=== PATIENT | female | born 1960 | race African-American/Black ===

== ENCOUNTER 2016-07-26 16:18 | Emergency (ER) | payer BC, OTHER ==
[2016-07-26 16:31] VITALS: BP 166/83; PULSE 62; TEMP 98; BMI 22.6
--- NOTE | 2016-07-26 17:03 | PDOC ---
History of Present Illness - General Chief Complaint: Injury Stated Complaint: FALL/HEAD INJURY Time Seen by Provider: 07/26/16 16:38 History Source: Patient Exam Limitations: No Limitations - History of Present Illness Initial Comments: CHIEF COMPLAINT: 56 y/o afebrile female with PMH IDDM, hypothryoidism c/o fall with LOC at work. HISTORY OF PRESENT ILLNESS: The patient states she tripped and fell at work and her co-worker told her she hit her head and had lost consciousness for "a few minutes". The patient states she did not feel dizzy or weak prior to fall. She does not remember if she lost consciousness. She states she has a slight pain in the left side of her head and her left leg. She states when she woke up she was slightly dizzy. She denies n/v/d, CP, SOB. She just checked her sugar and it's 60 - she is now eating in the ER. REVIEW OF SYSTEMS: GENERAL/CONSTITUTIONAL: No fever/chills. No weakness. No weight change. HEAD, EYES, EARS, NOSE AND THROAT: No change in vision. No ear pain or discharge. No sore throat. CARDIOVASCULAR: No chest pain or shortness of breath. No palpitations. RESPIRATORY: No cough, wheezing, or hemoptysis. GASTROINTESTINAL: No abd pain, nausea, vomiting, diarrhea. GENITOURINARY: No dysuria, frequency, or change in urination. MUSCULOSKELETAL: No joint or muscle swelling or pain. No neck or back pain. SKIN: No rash or easy bruising. NEUROLOGIC: +head trauma with LOC and then dizziness. PHYSICAL EXAM: GENERAL: The patient is awake, alert, and fully oriented, in no acute distress. She is well appearing and ambulatory. HEAD: Normal with no signs of trauma. No hematomas. ENT: Pupils equal, round and reactive to light, extraocular movements intact, sclera anicteric, conjunctiva clear. Neck supple. No midline cervical spine TTP. No hemotympanum b/l. LUNGS: Clear to auscultation bilaterally. Normal excursion. No respiratory distress or use of accessory muscles. CV: RRR, S1/S2, no MRG. Cap refill < 2 sec. ABDOMEN: Soft, non-distended, non-tender even to deep palpation, no hepatomegaly or splenomegaly, no masses. EXTREMITIES: Normal range of motion, no edema. NEUROLOGICAL: Normal speech, normal gait. CN II-XII grossly intact. PSYCH: Normal mood, normal affect. SKIN: Warm, dry, normal turgor, no rashes or lesions noted. Past History - Past Medical History Allergies/Adverse Reactions: Allergies Allergy/AdvReac Type Severity Reaction Status Date / Time No Known Drug Allergies Allergy Verified 03/19/16 12:36 Home Medications: Ambulatory Orders Aspirin Coated [Ecotrin -] 81 mg PO DAILY 03/19/16 Insulin Pump/Infus. Set/Meter [Accu-Chek Combo System] 1 each MC DAILY 03/19/16 Levothyroxine [Synthroid -] 112 mcg PO DAILY 03/19/16 Diabetes: Yes (IDDM-PUMP) Thyroid Disease: Yes (HYPOTHYROIDISM) - Psycho/Social/Smoking Cessation Hx Anxiety: No Suicidal Ideation: No Smoking History: Never smoked Have you smoked in the past 12 months: No Information on smoking cessation initiated: No Hx Alcohol Use: No Drug/Substance Use Hx: No Substance Use Type: Alcohol Hx Substance Use Treatment: No *Physical Exam - Vital Signs Last Vital Signs Temp Pulse Resp BP Pulse Ox 98.0 F 62 18 166/83 100 07/26/16 16:28 07/26/16 16:28 07/26/16 16:28 07/26/16 16:28 07/26/16 16:28 Medical Decision Making - Medical Decision Making A/P: 56 y/o female with witnessed fall with head trauma and LOC. Plan is as follows: 1. Head CT Head CT IMPRESSION: No interval change or acute pathology identified. The patient was given her results and head trauma protocol instructions. She does feel better since she's eaten. Pt instructed to return to the ER with any worsening or concerning symptoms. The patient verbalizes understanding of all instructions, has no further questions and is awaiting discharge. *DC/Admit/Observation/Transfer Diagnosis at time of Disposition: Fall from slipping Qualifiers: Encounter type: initial encounter Qualified Code(s): W01.0XXA - Fall on same level from slipping, tripping and stumbling without subsequent striking against object, initial encounter Head injury Qualifiers: Encounter type: initial encounter Qualified Code(s): S09.90XA - Unspecified injury of head, initial encounter - Discharge Dispostion Disposition: HOME Condition at time of disposition: Improved - Referrals Referrals: Neshiwat,Morris, MD [Primary Care Provider] - - Patient Instructions Printed Discharge Instructions: DI for Closed Head Injury Additional Instructions: Discharge Instructions: -Follow up with your doctor next week -Return to the ER with any worsening or concerning symptoms
[2016-07-26] MEDS ORDERED: ACETAMINOPHEN 325 MG TABLET (FP) ONE (18:32)
[2016-07-26] MEDS ORDERED: ACETAMINOPHEN 325 MG TABLET (FP) PO ONE (18:33)
== END 2016-07-26 18:36 | disposition home or self-care (01) ==
LOC: JERFT 16:18
DX: S06.899A Other specified intracranial injury with loss of consciousness of unspecified duration, initial encounter (principal); W01.198A Fall on same level from slipping, tripping and stumbling with subsequent striking against other object, initial encounter; Y93.89 Activity, other specified; Y92.118 Other place in children's home and orphanage as the place of occurrence of the external cause; Y99.0 Civilian activity done for income or pay; E11.9 Type 2 diabetes mellitus without complications; Z79.4 Long term (current) use of insulin; Z96.41 Presence of insulin pump (external) (internal); E03.9 Hypothyroidism, unspecified
CPT/HCPCS: 70450-TC; 99281-25

== ENCOUNTER 2018-08-11 09:48 | Day surgery (SDC) | payer BC ==
[2018-08-10 13:38] VITALS: BMI 24.1
--- NOTE | 2018-08-11 13:01 | HP ---
[facility] - Chief Complaint Chief Complaint: Back mass History of Present Illness: Patinet with back mass- enlarging in size. Prior history of discharge. + Discomfort History Source: Patient Limitations to Obtaining History: No Limitations - Past Medical History Allergies/Adverse Reactions: Allergies Allergy/AdvReac Type Severity Reaction Status Date / Time No Known Drug Allergies Allergy Verified 08/10/18 13:38 Endocrine: Yes: Diabetes Mellitus, Hypothyroidism - Current Medications Current Medications: Home Medications Medication Instructions Recorded Aspirin Coated [Ecotrin -] 81 mg PO ASDIR 03/19/16 Insulin Pump/Infus. Set/Meter 1 each MC DAILY 03/19/16 [Accu-Chek Combo System] Levothyroxine [Synthroid -] 112 mcg PO DAILY 03/19/16 Oxycodone HCl/Acetaminophen 1 - 2 tab PO Q6H #28 tab MDD 4 08/11/18 [Percocet 5-325 mg Tablet] Satellite Physical Exam - Physical Examination Vital Signs: Vital Signs Period Temp Pulse Resp BP Sys/Gonzalez Pulse Ox Last 24 Hr 98.3 F-98.3 F 62-62 18-18 118-118/63-63 98 General Appearance: Well Nourished, Other (2cm x 2cm upper back mass No discharge No erythema) Lung: Clear to auscultation Heart: Regular rate & rhythm Abdomen: Soft, No tenderness Neurological: Alert, Oriented Satellite Impression/Plan - Impression/Plan Impression: Back mass Operative Procedure: Excision of back mass Date to be Performed: 08/11/18
[2018-08-11] MEDS ORDERED: DEXAMETHASONE SOD PHOSPHATE 4 MG/1 ML VIAL ONE (13:28)
[2018-08-11] MEDS ORDERED: SODIUM CHLORIDE 0.9% P/F 10 ML VIAL IJ ONE (13:28)
[2018-08-11] MEDS ORDERED: ceFAZolin SODIUM 1 GM VIAL ONE (13:28)
[2018-08-11] MEDS ORDERED: LIDOCAINE HCL/PF 2% SDV 5ML VIAL ONE (13:28)
[2018-08-11] MEDS ORDERED: PROPOFOL 20 ML ONE (13:29)
[2018-08-11] MEDS ORDERED: MIDAZOLAM HCL 2 MG/2 ML SINGLE DOSE VIAL ONE (13:29)
[2018-08-11] MEDS ORDERED: ceFAZolin SODIUM 1 GM VIAL IVPB ONE (13:45)
[2018-08-11] MEDS ORDERED: LIDOCAINE 1%/EPI 1:100000 (50 ML MULTI DOSE VIAL) INF ONE (13:48)
[2018-08-11] MEDS ORDERED: LIDOCAINE 1%-EPI 1:100,000 30 ML MDV IJ ONE (13:49)
[2018-08-11] MEDS ORDERED: ONDANSETRON 4 MG/2 ML VIAL IVPUSH PRN (14:01)
[2018-08-11] MEDS ORDERED: POVIDONE-IODINE OINTMENT 10% - 28.4 GM TUBE ONE (14:13)
[2018-08-11] MEDS ORDERED: LACTATED RINGERS SOLUTION 1,000 ML IV SCH (14:15)
--- NOTE | 2018-08-11 14:25 | OP ---
Operative Note - Note: Operative Date: 08/11/18 Pre-Operative Diagnosis: Back mass Operation: Excision of back mass Findings: back mass 2cm x 2cm x 2cm in size Surgeon: Renny Shaver Anesthesia: Local, MAC Specimens Removed: Back mass Estimated Blood Loss (mls): 5 Operative Report Dictated: Yes
--- NOTE | 2018-08-11 15:40 | OP ---
DATE OF OPERATION: 08/11/2018 SURGEON: Mady Shaver MD PREOPERATIVE DIAGNOSIS: Back mass. POSTOPERATIVE DIAGNOSIS: Back mass. PROCEDURE: Excision of back mass, approximately 2 cm x 2 cm x 2 cm in size. SPECIMEN: Back mass. ANESTHESIA: MAC/local lidocaine with epinephrine. ESTIMATED BLOOD LOSS: Minimal. DRAINS: None. REASON FOR PROCEDURE: This is a 58-year-old female who presents for a mass on her back. She states that it has been enlarging and had times in the past where it was tender, had discomfort, and had episodes of discharge. Because of this, she was considered for excision of her back mass. The risks and benefits of the procedure were explained including bleeding, infection, recurrence of the mass, wound dehiscence, injury to surrounding structures including nerve injury, muscle injury, vessel injury, ME, DVT, PE, as some of the complications. She understood and signed the informed consent. DESCRIPTION OF PROCEDURE: Patient was brought into the OR and placed prone on the operating room table. She underwent MAC by Anesthesia. The area was prepped and draped in usual sterile fashion. Timeout was performed. Lidocaine with epinephrine was injected after the area was circumferentially marked for excisional purposes. Using a 15-blade scalpel, incision was made around the area of the mass and dissected down to below the level of the mass. The entirety of the mass was removed and sent off field as specimen. The area was copiously irrigated, and hemostasis was obtained with electrocautery. Vircyl 3-0 was used to close the deep subcutaneous tissue and, because of the location, 2-0 silk was used in a horizontal mattress fashion to close the skin. Betadine ointment was placed, and a dressing placed. Patient tolerated the procedure well, transferred to the recovery room in stable condition. MADY SHAVER M.D. MELANIE/[id number]
[2018-08-11 16:29] VITALS: BP 110/59; PULSE 61; TEMP 98.1
--- NOTE | 2018-08-14 10:13 | PATH ---
Surgical Pathology Report Patient Name: KARISSA HOOKS [facility]. Rec. #: [id number] /Age/Gender: 1960 (Age: 58) / F Account: [id number] Location: [facility] SURGICAL Taken: 08/11/2018 Received: 08/12/2018 Reported: 08/14/2018 Physicians: Renny Shaver M.D. Specimen(s) Received BACK MASS Clinical History Back mass Final Diagnosis BACK MASS, EXCISION: EPIDERMAL INCLUSION CYST. Electronically Signed Yodit Boone M.D. Gross Description Received in formalin labeled " back mass" is a 1.8 x 0.7 cm brown, elliptical portion of skin excised to a depth of 0.8 cm. The epidermal surface is unremarkable. Sectioning reveals an intact brown cystic structure. Staff Therapist sections are submitted in one cassette. DL/08/12/2018 saudi08/12/2018
== END 2018-08-11 16:35 | disposition home or self-care (01) ==
LOC: JASU-SURG 09:48
PROVIDERS: ATTEND Surgery
PROC: 0HB6XZZ Excision of Back Skin, External Approach (ICD-10-PCS; principal; 2018-08-11 12:30)
DX: L72.0 Epidermal cyst (principal)
CPT/HCPCS: 82962; 88304-TC

== ENCOUNTER → 2019-08-05 | Day surgery (SDC) | payer BC ==
--- NOTE | 2019-08-06 13:32 | PATH ---
Surgical Pathology Report Patient Name: KARISSA HOOKS [facility]. Rec. #: [id number] /Age/Gender: 1960 (Age: 59) / F Account: [id number] Location: [facility] Taken: 08/05/2019 Received: 08/05/2019 Reported: 08/06/2019 Physicians: Adia Tovar MD Specimen(s) Received A: RIGHT BREAST SPECIMEN - WITH CALCIFICATIONS B: RIGHT BREAST SPECIMEN - WITHOUT CALCIFICATIONS Clinical History Nonpalpable lesion Mammographic findings: Microcalcification, suspicious Final Diagnosis A. BREAST, RIGHT, WITH CALCIFICATIONS, STEREOTACTIC CORE BIOPSY: BENIGN BREAST PARENCHYMA WITH STROMAL FIBROSIS, MICROCYSTS, CYSTIC APOCRINE METAPLASIA, AND ASSOCIATED MICROCALCIFICATIONS. B. BREAST, RIGHT, WITHOUT CALCIFICATIONS, STEREOTACTIC CORE BIOPSY: BENIGN BREAST PARENCHYMA WITH STROMAL FIBROSIS AND FEW MICROCYSTS. Electronically Signed Yodit Boone M.D. Gross Description A. Received in formalin labeled "right breast with calcifications" are 6 heard-yellow, cylindrical portions of fibroadipose tissue ranging from 0.3-1.7 cm in length and averaging 0.3 cm in diameter. The specimens are submitted in toto in one cassette. B. Received in formalin labeled "right breast without calcifications," are 6 heard-yellow, cylindrical portions of fibroadipose tissue ranging from 0.5-2.0 cm in length and averaging 0.3 cm in diameter. The specimens are submitted in toto in one cassette. Time to formalin fixation: 5 minutes Total formalin fixation time: Approximately 8 hours. 08/05/2019 saudi08/05/2019
== END | disposition home or self-care (01) ==
LOC: FMAMMOTONE 08:11
PROVIDERS: ATTEND Obstetrics & Gynecology
PROC: 0HBT3ZX Excision of Right Breast, Percutaneous Approach, Diagnostic (ICD-10-PCS; principal; 2019-08-05)
DX: N60.11 Diffuse cystic mastopathy of right breast (principal); N60.31 Fibrosclerosis of right breast; N64.89 Other specified disorders of breast; R92.8 Other abnormal and inconclusive findings on diagnostic imaging of breast
CPT/HCPCS: 19081; 76098-TC-FY; 87899; 88305-TC; A4648

== ENCOUNTER 2021-09-08 06:47 | Emergency (ER) | payer BC ==
[2021-09-08 07:24] VITALS: BMI 23.3
[2021-09-08] MEDS ORDERED: ACETAMINOPHEN 1000 MG/100 ML BAG IVPB ONE (07:41)
[2021-09-08 08:08] LABS: BASO % 0.4 % (0-2.0); EOS % 0.3 % (0-4.5); HEMATOCRIT 35.8 % (32.4-45.2); LYMPH % 10.6 % (8-40); MCH 30.1 pg (25.7-33.7); MCHC 33.5 g/dl (32.0-36.0); MEAN PLT VOLUME 8.9 fl (7.5-11.1); MONO % 8.2 % (3.8-10.2); NEUT % 80.5 % (42.8-82.8); PLATELET COUNT 235 10^3/uL (134-434); RBC 3.98 M/mm3 (3.60-5.2); RDW 13.5 % (11.6-15.6); WHITE BLOOD COUNT 7.1 K/mm3 (4.0-10.0)
[2021-09-08] MEDS ORDERED: ACETAMINOPHEN INJECTION 100 ML IVPB ONE (08:11)
[2021-09-08 08:24] LABS: ALBUMIN 3.2 g/dl (3.4-5.0); CALCIUM 8.8 mg/dL (8.5-10.1)
[2021-09-08 08:27] LABS: CREATININE 0.9 mg/dL (0.55-1.3)
[2021-09-08 08:28] LABS: BILIRUBIN,TOTAL 0.4 mg/dL (0.2-1)
[2021-09-08 08:30] LABS: TOT PROT 7.9 g/dl (6.4-8.2)
[2021-09-08 09:52] VITALS: TEMP 98.7
[2021-09-08 10:07] VITALS: BP 122/67; PULSE 58
[2021-09-09 13:07] LABS: SARS-CoV-2 NAA Not Detected (Not Detected)
== END 2021-09-08 10:07 | disposition home or self-care (01) ==
LOC: JER 06:47
PROC: 3E033GC Introduction of Other Therapeutic Substance into Peripheral Vein, Percutaneous Approach (ICD-10-PCS; principal; 2021-09-08)
DX: B34.9 Viral infection, unspecified (principal); R07.0 Pain in throat; R50.9 Fever, unspecified
CPT/HCPCS: 36415; 71045-TC-FY; 80053; 84439; 84443; 85025; 87070; 93005; 93010; 99285-25; C9803; U0003; U0005

== ENCOUNTER 2023-05-28 03:31 | Day surgery (SDC) | payer BC ==
[2023-05-27 14:20] VITALS: BMI 22.6
[~2023-05-28 03:31] MED LIST: ACETAMINOPHEN 325 MG TABLET (FP) PO PRN; CYCLOPENTOLATE HCL 1% OPHTH SOLN 2 ML BOTTLE OP SCH; KETOROLAC TROMETHAMINE 0.5% EYE DROP 1 DROP DROPS OP SCH; OFLOXACIN 0.3% OPHTHALMIC SOLUTION 5 ML BOTTLE OP SCH; PHENYLEPHRINE 2.5% OPHTH SOLN 15 ML BOTTLE OP SCH; TROPICAMIDE 1% OPHTH SOLN 15 ML BOTTLE OP SCH
[2023-05-28] MEDS ORDERED: CYCLOPENTOLATE HCL 1% OPHTH SOLN 2 ML BOTTLE ONE (06:31)
[2023-05-28] MEDS ORDERED: KETOROLAC TROMETHAMINE 0.5% EYE DROP 1 DROP DROPS ONE (06:31)
[2023-05-28] MEDS ORDERED: TROPICAMIDE 1% OPHTH SOLN 15 ML BOTTLE ONE (06:31)
[2023-05-28] MEDS ORDERED: PHENYLEPHRINE 2.5% OPTHALMIC DROP 2ML BOTTLE ONE (06:31)
[2023-05-28] MEDS ORDERED: OFLOXACIN 0.3% OPHTHALMIC SOLUTION 5 ML BOTTLE ONE (06:32)
[2023-05-28] MEDS ORDERED: PHENYLEPHRINE 2.5% OPHTH SOLN 15 ML BOTTLE OS ONE ×3 (06:55→07:05)
[2023-05-28] MEDS ORDERED: TROPICAMIDE 1% OPHTH SOLN 15 ML BOTTLE OS ONE ×3 (06:55→07:05)
[2023-05-28] MEDS ORDERED: KETOROLAC TROMETHAMINE 0.5% EYE DROP 1 DROP DROPS OS ONE ×3 (06:55→07:05)
[2023-05-28] MEDS ORDERED: CYCLOPENTOLATE HCL 1% OPHTH SOLN 2 ML BOTTLE OS ONE ×3 (06:55→07:05)
[2023-05-28] MEDS ORDERED: OFLOXACIN 0.3% OPHTHALMIC SOLUTION 5 ML BOTTLE OS ONE ×3 (06:55→07:05)
[2023-05-28] MEDS ORDERED: TETRACAINE 0.5% OPHTH SOLN 2 ML BOTTLE ONE (07:36)
[2023-05-28] MEDS ORDERED: VANCOMYCIN 500 MG VIAL (RESTRICTED TO ID ONLY) ONE (07:36)
[2023-05-28] MEDS ORDERED: EPINEPHrine/PF 1 MG/1 ML (1:1,000) AMPULE ONE (07:36)
[2023-05-28] MEDS ORDERED: POVIDONE-IODINE 5% OPHTHALMIC PREP 30 ML SOLUTION ONE (07:37)
[2023-05-28] MEDS ORDERED: BSS (NA/CA/MG/K) BALANCED SALT SOLUTION OPHTH SOLN 15 ML BOTTLE ONE (07:37)
[2023-05-28] MEDS ORDERED: TRYPAN BLUE 0.5 ML DISP.SYRIN ONE (07:38)
[2023-05-28] MEDS ORDERED: MIDAZOLAM HCL 2 MG/2 ML SINGLE DOSE VIAL ONE (08:01)
[2023-05-28] MEDS ORDERED: TETRACAINE 0.5% OPHTH SOLN 2 ML BOTTLE OS ONE (08:16)
[2023-05-28] MEDS ORDERED: TETRACAINE 0.5% OPHTH SOLN 2 ML BOTTLE TP ONE (08:16)
[2023-05-28] MEDS ORDERED: POVIDONE-IODINE 5% OPHTHALMIC PREP 30 ML SOLUTION OS ONE ×2 (08:17)
[2023-05-28] MEDS ORDERED: BSS (NA/CA/MG/K) BALANCED SALT SOLUTION OPHTH SOLN 15 ML BOTTLE OS ONE (08:24)
[2023-05-28] MEDS ORDERED: LIDOCAINE HCL 1% PRESERVATIVE FREE - 30ML VIAL IO ONE ×2 (08:24→08:25)
[2023-05-28] MEDS ORDERED: BSS (NA/CA/MG/K) BALANCED SALT SOLUTION OPHTH SOLN 15 ML BOTTLE IO ONE (08:25)
[2023-05-28] MEDS ORDERED: CHONDROITIN SU A/HYALUR SOD 1 KIT IO ONE ×2 (08:25)
[2023-05-28] MEDS ORDERED: EPINEPHrine/PF 1 MG/1 ML (1:1,000) AMPULE SQ ONE (08:30)
[2023-05-28] MEDS ORDERED: EPINEPHrine/PF 1 MG/1 ML (1:1,000) AMPULE IO ONE ×2 (08:30)
[2023-05-28] MEDS ORDERED: VANCOMYCIN 500 MG VIAL (RESTRICTED TO ID ONLY) IVPB ONE (08:43)
[2023-05-28] MEDS ORDERED: ACETAMINOPHEN 325 MG TABLET (FP) ONE (09:14)
[2023-05-28 13:27] VITALS: BP 110/51; PULSE 62; RESP 20; TEMP 97.2
== END 2023-05-28 12:50 | disposition home or self-care (01) ==
LOC: JASU-SURG 03:31
PROVIDERS: ATTEND Ophthalmology
PROC: 08RK3JZ Replacement of Left Lens with Synthetic Substitute, Percutaneous Approach (ICD-10-PCS; principal; 2023-05-28 08:00)
DX: H26.9 Unspecified cataract (principal)
CPT/HCPCS: 82962; V2632

== ENCOUNTER 2023-06-11 05:17 | Day surgery (SDC) | payer BC ==
[2023-06-09 11:56] VITALS: BMI 22.9
[~2023-06-11 05:17] MED LIST changes: -CYCLOPENTOLATE HCL 1% OPHTH SOLN 2 ML BOTTLE OP SCH; -KETOROLAC TROMETHAMINE 0.5% EYE DROP 1 DROP DROPS OP SCH; -OFLOXACIN 0.3% OPHTHALMIC SOLUTION 5 ML BOTTLE OP SCH; -PHENYLEPHRINE 2.5% OPHTH SOLN 15 ML BOTTLE OP SCH; -TROPICAMIDE 1% OPHTH SOLN 15 ML BOTTLE OP SCH; +VANCOMYCIN 500 MG VIAL (RESTRICTED TO ID ONLY) IVPB ONE
[2023-06-11] MEDS ORDERED: CYCLOPENTOLATE HCL 1% OPHTH SOLN 2 ML BOTTLE ONE (06:30)
[2023-06-11] MEDS: CYCLOPENTOLATE HCL 1% OPHTH SOLN 2 ML BOTTLE OP SCH ×3 (06:30→06:50)
[2023-06-11] MEDS ORDERED: KETOROLAC TROMETHAMINE 0.5% EYE DROP 1 DROP DROPS ONE (06:30)
[2023-06-11] MEDS ORDERED: OFLOXACIN 0.3% OPHTHALMIC SOLUTION 5 ML BOTTLE ONE (06:30)
[2023-06-11] MEDS ORDERED: PHENYLEPHRINE 2.5% OPTHALMIC DROP 2ML BOTTLE ONE (06:30)
[2023-06-11] MEDS: TROPICAMIDE 1% OPHTH SOLN 15 ML BOTTLE OP SCH ×3 (06:30→06:50)
[2023-06-11] MEDS: KETOROLAC TROMETHAMINE 0.5% EYE DROP 1 DROP DROPS OP SCH ×3 (06:30→06:50)
[2023-06-11] MEDS: PHENYLEPHRINE 2.5% OPHTH SOLN 15 ML BOTTLE OP SCH ×3 (06:30→06:50)
[2023-06-11] MEDS ORDERED: TROPICAMIDE 1% OPHTH SOLN 15 ML BOTTLE ONE (06:30)
[2023-06-11] MEDS: OFLOXACIN 0.3% OPHTHALMIC SOLUTION 5 ML BOTTLE OP SCH ×3 (06:30→06:50)
[2023-06-11 06:48] VITALS: RESP 18
[2023-06-11] MEDS ORDERED: EPINEPHrine/PF 1 MG/1 ML (1:1,000) AMPULE ONE (07:28)
[2023-06-11] MEDS ORDERED: TETRACAINE 0.5% OPHTH SOLN 2 ML BOTTLE ONE (07:29)
[2023-06-11] MEDS ORDERED: BSS (NA/CA/MG/K) BALANCED SALT SOLUTION OPHTH SOLN 15 ML BOTTLE ONE (07:29)
[2023-06-11] MEDS ORDERED: VANCOMYCIN 500 MG VIAL (RESTRICTED TO ID ONLY) ONE (07:29)
[2023-06-11] MEDS ORDERED: POVIDONE-IODINE 5% OPHTHALMIC PREP 30 ML SOLUTION ONE (07:30)
[2023-06-11] MEDS ORDERED: LIDOCAINE HCL/PF 1% SDV 5ML VIAL ONE (07:33)
[2023-06-11] MEDS ORDERED: MIDAZOLAM HCL 2 MG/2 ML SINGLE DOSE VIAL ONE (08:01)
[2023-06-11] MEDS ORDERED: TETRACAINE 0.5% OPHTH SOLN 2 ML BOTTLE TP ONE (08:11)
[2023-06-11] MEDS ORDERED: POVIDONE-IODINE 5% OPHTHALMIC PREP 30 ML SOLUTION OD ONE (08:12)
[2023-06-11] MEDS ORDERED: BSS (NA/CA/MG/K) BALANCED SALT SOLUTION OPHTH SOLN 15 ML BOTTLE OD ONE (08:16)
[2023-06-11] MEDS ORDERED: CHONDROITIN SU A/HYALUR SOD 1 KIT IO ONE (08:17)
[2023-06-11] MEDS ORDERED: LIDOCAINE HCL 1% PRESERVATIVE FREE - 30ML VIAL IO ONE (08:17)
[2023-06-11] MEDS ORDERED: EPINEPHrine/PF 1 MG/1 ML (1:1,000) AMPULE SQ ONE (08:24)
[2023-06-11] MEDS ORDERED: VANCOMYCIN 500 MG VIAL (RESTRICTED TO ID ONLY) IVPB ONE (08:42)
[2023-06-11 11:49] VITALS: BP 135/64; PULSE 63; TEMP 97.8
== END 2023-06-11 11:30 | disposition home or self-care (01) ==
LOC: JASU-SURG 05:17
PROVIDERS: ATTEND Ophthalmology
PROC: 08B Eye, Excision (ICD-10-PCS; principal; 2023-06-11 08:00)
DX: H26.9 Unspecified cataract (principal)
CPT/HCPCS: 82962; V2632

== ENCOUNTER 2024-07-19 04:33 | Day surgery (SDC) | payer BC ==
[2024-07-12 10:49] VITALS: BMI 22.1
[2024-07-19] MEDS ORDERED: ROCURONIUM BROMIDE 50 MG/5 ML SYRINGE ONE ×2 (09:25→11:05)
[2024-07-19] MEDS ORDERED: MIDAZOLAM HCL 2 MG/2 ML SINGLE DOSE VIAL ONE (09:25)
[2024-07-19] MEDS ORDERED: PROPOFOL 20 ML ONE (09:25)
[2024-07-19] MEDS ORDERED: BUPIVACAINE HCL/PF 0.25% (2.5MG/ML) 10 ML VIAL ONE (09:56)
[2024-07-19] MEDS ORDERED: HEPARIN NA (PORCINE) 5,000 UNITS/ML 1ML VIAL ONE (10:40)
[2024-07-19] MEDS ORDERED: ceFAZolin SODIUM 1 GM VIAL ONE (10:45)
[2024-07-19] MEDS: ceFAZolin SODIUM 1 GM VIAL IVPB ONE (10:45)
[2024-07-19] MEDS: HEPARIN NA (PORCINE) 5,000 UNITS/ML 1ML VIAL SQ ONE (10:50)
[2024-07-19] MEDS ORDERED: ACETAMINOPHEN INJECTION 100 ML ONE (12:15)
[2024-07-19] MEDS ORDERED: oxyCODONE HCL 5 MG TABLET PO PRN (12:24)
[2024-07-19] MEDS ORDERED: ONDANSETRON 4 MG/2 ML VIAL IVPUSH PRN (12:24)
[2024-07-19] MEDS ORDERED: LACTATED RINGERS SOLUTION 1,000 ML IV SCH (12:30)
[2024-07-19] MEDS ORDERED: SUGAMMADEX SODIUM 200 MG/2 ML VIAL ONE (13:08)
[2024-07-19] MEDS: LACTATED RINGERS SOLUTION 1000 ML INFUS.BAG IV SCH (15:30)
[2024-07-19 16:39] VITALS: RESP 16
[2024-07-19 17:39] VITALS: BP 134/56; PULSE 84; TEMP 97.5
== END 2024-07-19 17:57 | disposition home or self-care (01) ==
LOC: JASU-SURG 04:33
PROVIDERS: ATTEND Surgery
PROC: 0YU54JZ Supplement Right Inguinal Region with Synthetic Substitute, Percutaneous Endoscopic Approach (ICD-10-PCS; principal; 2024-07-19 10:30)
DX: K40.90 Unilateral inguinal hernia, without obstruction or gangrene, not specified as recurrent (principal)
CPT/HCPCS: 82962; 86850; 86900; 86901; 88304-TC; 94760; C1781; J0131; J1644